=== PATIENT | female | born 1980 | race Caucasian/White ===

== ENCOUNTER 2018-03-26 14:34 | Emergency (ER) | payer OTHER ==
[2018-03-26 15:33] VITALS: BMI 33.8
--- NOTE | 2018-03-26 16:16 | OBHP ---
Datetime: 03/26/2018 15:42 IP Adm Impression: , intrauterine ; No Active Labor; Intact Membranes IP Admit Plan: Observation/Evaluation Admit Comment, IP Provider: 37yo IUP at29w notice spotting on tissue after wiping in bathroo m. F/U/D. No CTX; no SROM. +FM ] PNC: Dr Chamorro - chart rev'd; last visit today POBGYNH: x 2 ; TOP x 2; spont ab x 2 PMH: denies PSH denies NKA PSOH: denies smoking ETOH drugs A: IUP at 29w ?vaginal spotting / UTI / threatened PTL AMA PLAN: check UA CLM Pelvic Type - PN: Adequate Extremities - PN: Normal Abdomen - PN: Normal HEENT - PN: Normal General - PN: Normal FHR - Baseline A Provider: 150 Membranes, Provider: Intact Contraction Comments Provider: 0 Comments, ACOG Physical Exam: SSe no VB; Cx closed; no blood Pool Provider: Negative IP Hx Assessment: The History has been Reviewed and is Current EGA AdmitDate IP: 29.4 Vital Signs Provider: Reviewed; Within Normal Limits IP Chief Complaint: Vaginal bleeding NICHD Variability Prov Fetus A: Moderate 6-25bpm NICHD Accel Fetus A IP Provider: 15X15 FHR Category Provider Fetus A: Category I NICHD Decel Fetus A IP Provider: None Dilatation, Provider: 0 Genitourinary Exam: Normal
--- NOTE | 2018-03-26 16:26 | US ---
Date of service: 03/26/2018 PROCEDURE: Limited pelvic ultrasound HISTORY: , vaginal spotting. COMPARISON: None available. TECHNIQUE: Standard protocol for this study/examination. FINDINGS: Study was performed to assess cervical length. Closed cervix 4.9 cm. IMPRESSION: Closed cervix measuring 4.9 cm in length.
[2018-03-26 17:08] LABS: SQUAMOUS EPITHIAL 3 /hpf (0-5); URINE BACTERIA OCC (<OCC); URINE BILIRUBIN NEGATIVE (NEGATIVE); URINE BLOOD NEGATIVE (NEGATIVE); URINE CLARITY CLOUDY (Clear); URINE COLOR YELLOW (YELLOW); URINE GLUCOSE (UA) NEG (Normal); URINE LEUKOCYTE ESTERASE NEG Leu/uL (Negative); URINE PROTEIN NEGATIVE (NEGATIVE); URINE UROBILINOGEN 0.2-1.0 mg/dL (0.2-1.0)
== END 2018-03-26 17:00 | disposition home or self-care (01) ==
LOC: H.EROB2 14:34 → H.EROB 14:53 → H.EROB2 17:00
DX: O26.853 Spotting complicating pregnancy, third trimester (principal); O23.43 Unspecified infection of urinary tract in pregnancy, third trimester; Z3A.29 29 weeks gestation of pregnancy

== ENCOUNTER 2018-05-24 05:23 | Inpatient (IN) | payer OTHER ==
[2018-05-24 05:45] VITALS: BMI 35.4
[2018-05-24] MEDS ORDERED: Lactated Ringer's 1,000 ML IV ONE (06:03)
[2018-05-24] MEDS ORDERED: Oxytocin 30 UNITS in Sodium Chloride 0.9% 500 ML IV ONE (06:07)
[2018-05-24] MEDS ORDERED: OXYTOCIN/0.9 % NS 20 UNIT/1,000 ML BAG IV SCH (06:15)
[2018-05-24] MEDS ORDERED: Lactated Ringer's 1,000 ML IV SCH ×2 (06:15→16:46)
[2018-05-24 06:26] LABS: BASO % 0.3 % (0.0-2.0); EOS # 0.1 K/uL (0.0-0.7); EOS % 0.7 % (0.0-4.0); HEMOGLOBIN 12.1 g/dL (12.0-16.0); LYMPH # 2.6 K/uL (1.0-4.3); LYMPH % 23.8 % (20.0-40.0); MEAN CELL VOLUME 90.9 fl (81.0-99.0); MEAN CORPUSCULAR HEMOGLOBIN 30.8 pg (27.0-31.0); MEAN CORPUSCULAR HGB CONC 33.9 g/dL (33.0-37.0); MEAN PLATELET VOLUME 9.2 fl (7.2-11.7); MONO # 0.6 K/uL (0.0-0.8); MONO % 5.6 % (0.0-10.0); NEUT # 7.7 K/uL (1.8-7.0); NEUT % 69.6 % (50.0-75.0); NRBC % 0.1 % (0.0-0.0); RBC 3.93 Mil/uL (3.80-5.20)
[2018-05-24] MEDS ORDERED: Phenylephrine 10 mg/ml Inj ONE (07:18)
[2018-05-24] MEDS ORDERED: ePHEDrine 50 mg/ml Inj ONE (07:18)
[2018-05-24] MEDS ORDERED: Fentanyl/Bupivacaine HCl 250 ML EPI ONE (08:30)
--- NOTE | 2018-05-24 10:26 | OBPN ---
Datetime: 05/24/2018 10:19 IP Progress Impression: Normal progression of labor IP Informed Consent Obtain: Vaginal Delivery IP Procedures: Sterile Vag Exam IP Progress Plan: Continue present management Membranes, Provider: Ruptured Contraction Comments Provider: q 2-4 mins FHR - Baseline A Provider: 160 IP Progress Note Comment: Patient evaluated, s/p epidural VE=8/100/-1 FHR = 160 mod jose alejandro, +accels, early decels/late decelerations noted A/P 1. Patient comfortable s/p epidural. Pt almost 8cm, progressing in labor. Late decelerations have been intermittent with moderatve variablity noted. Resuscitation methods have resolved late decelerat ions. Discussed with patient if does not progress well or recurrent, may have to consider 2. CEFM and TOCO 3. Re-evaluate as needed Vital Signs Provider: Reviewed; Within Normal Limits NICHD Variability Prov Fetus A: Moderate 6-25bpm Dilatation, Provider: 7-8 Effacement, Provider: 100 Station, Provider: -1 NICHD Decel Fetus A IP Provider: Early; Late Datetime: 05/24/2018 06:01 Gestation - Est Wks by US: 38.0 NICHD Accel Fetus A IP Provider: 15X15 FHR Category Provider Fetus A: Category I Datetime: 03/26/2018 15:42 Pool Provider: Negative
[2018-05-24] MEDS ORDERED: Oxytocin 30 UNIT 30 UNITS/500 ML BAG IV ONE (10:27)
[2018-05-24] MEDS ORDERED: Oxycodone/Acetaminophen 5/325 mg Tab PO PRN ×2 (14:42→16:46)
[2018-05-24] MEDS ORDERED: Benzocaine/Menthol SPRAY TOP PRN ×2 (14:42→16:46)
--- NOTE | 2018-05-24 14:50 | OBDS ---
DELIVERY PERSONNEL Nurse Manager Income Tax Certified: timur Delivery Doctor: Dr Stephanie Smith Nurse: timur Rn Mobile: JANEE Titus;JANEE Menendez Anesthesiologist: Dr Haskins Global Sales Executive: timur Resident: timur MATERNAL INFORMATION Delivery Anesthesia: Epidural Medications in Delivery: pitocin Estimated Blood Loss (ml): 50cc Placenta Cultured: No Maternal Complications: None RN Comments: to alive baby boy;apgar9/9 ;placenta delivered complete;uneventful delivery Provider Comments: of live male over intact perineum, PAT presentation, followed by claudia torres and rest of infant atraumatically, mouth and nose suctioned, cord clamped and cut, cord blood o btained, placenta delivered spontaneously, fundus firm, EBL = 50mL, first degree laceration repaired with 2-0 Vicryl rapide LABOR SUMMARY EDC: 06/07/2018 00:00 No. Babies in Womb: 1 Attempted: No Labor Anesthesia: Epidural LABOR INFORMATION Reason for Induction: Not Applicable Onset of Labor: 05/24/2018 03:45 Complete Dilatation: 05/24/2018 11:30 Oxytocin: Augmentation Group B Beta Strep: Negative Antibiotics # of Doses: 0 Antibiotics Time of Last Dose: 0 Steroids Given: None Reason Steroids Not Administered: Not Applicable MEMBRANES Membranes Rupture Method: Spontaneous Rupture of Membranes: 05/24/2018 03:15 Length of Rupture (hrs): 10.30 Amniotic Fluid Color: Clear Amniotic Fluid Amount: Large Amniotic Fluid Odor: Normal STAGES OF LABOR Stage 1 hrs: 7 Stage 1 min: 45 Stage 2 hrs: 2 Stage 2 min: 3 Stage 3 hrs: 0 Stage 3 min: 2 Total Time in Labor hrs: 9 Total Time in Labor min: 50 VAGINAL DELIVERY Episiotomy: None Laceration Extension: First Degree Laceration Type: Perineal Other Laceration: na Laceration Repair: Not Applicable Initial Vag Sponge Count: 6 Final Vag Sponge Count: 6 Initial Vag Sharps Count: 2 Final Vag Sharps Count: 2 Sharps Count Correct: Yes Count Comment: correct count BABY A INFORMATION Infant Delivery Date/Time: 05/24/2018 13:33 Method of Delivery: Vaginal Born in Route : No : N/A Forceps: N/A Vacuum Extraction: N/A Shoulder Dystocia : No SHOULDER DYSTOCIA BABY A Delivery Date/Time: 05/24/2018 13:33 PRESENTATION/POSITION BABY A Presentation: Cephalic Cephalic Presentation: Vertex Breech Presentation: N/A PLACENTA INFORMATION BABY A Placenta Delivery Time : 05/24/2018 13:35 Placenta Method of Delivery: Spontaneous Placenta Status: Delivered SCORES BABY A Heart Rate 1 min: >100 bpm Resp Effort 1 min: Good Cry Reflex Irritability 1 min: Cough or Sneeze or Pulls Away Muscle Tone 1 min: Active Motion Color 1 min: Body Braggs, Extremities Blue SCORE 1 MIN: 9 Heart Rate 5 min: >100 bpm Resp Effort 5 min: Good Cry Reflex Irritability 5 min: Cough or Sneeze or Pulls Away Muscle Tone 5 min: Active Motion Color 5 min: Body Braggs, Extremities Blue SCORE 5 MIN: 9 INFORMATION BABY A Gestational Age at Delivery: 38.0 Gestational Status: Term Outcome : Liveborn Infant Condition : Stable Infant Sex: Male IDENTIFICATION/MEDS BABY A ID Band Number: [id number] ID Band Location: Left Leg; Left Arm CORD INFORMATION BABY A No. Cord Vessels: 3 Nuchal Cord : Around Neck x1, Loose Nuchal Cord Other: na True Knot: na Cord pH Baby Arterial: na Infant Cord pH Baby Venous: na Cord Blood Taken: Yes Banking/Donate Info: na Infant Suction: None
[2018-05-25 06:35] LABS: BASO % 0.2 % (0.0-2.0); EOS # 0.1 K/uL (0.0-0.7); EOS % 0.5 % (0.0-4.0); HEMOGLOBIN 10.5 g/dL (12.0-16.0); LYMPH # 2.7 K/uL (1.0-4.3); LYMPH % 17.3 % (20.0-40.0); MEAN CELL VOLUME 90.9 fl (81.0-99.0); MEAN CORPUSCULAR HEMOGLOBIN 30.6 pg (27.0-31.0); MEAN CORPUSCULAR HGB CONC 33.7 g/dL (33.0-37.0); MEAN PLATELET VOLUME 9.1 fl (7.2-11.7); MONO # 0.8 K/uL (0.0-0.8); MONO % 5.1 % (0.0-10.0); NEUT # 12.1 K/uL (1.8-7.0); NEUT % 76.9 % (50.0-75.0); NRBC % 0.1 % (0.0-0.0); RBC 3.44 Mil/uL (3.80-5.20); RED CELL DISTRIBUTION WIDTH 14.3 % (11.5-14.5); WHITE BLOOD COUNT 15.7 K/uL (4.8-10.8)
[2018-05-25] MEDS: Multivitamin With Minerals Tab PO SCH (08:56)
[2018-05-25] MEDS ORDERED: Multivitamin With Minerals Tab PO SCH (09:00)
--- NOTE | 2018-05-25 10:15 | OBPPN ---
Datetime: 05/25/2018 10:13 PP Pain Prov: Within normal limits PP Nausea Prov: Denies PP Flatus Prov: Yes PP BM Prov: Yes PP Breasts Prov: Normal PP Heart Prov: Normal PP Lungs Prov: Normal PP Abdomen/Uterus Prov: Normal PP Lochia Prov: Normal PP Vulva/Perineum Prov: Normal PP CVA Tenderness Prov: Normal PP Extremities Prov: Normal PP Progress Prov: Normal PP Impression Prov: Normal progression PP Plan Prov: Continue present management PP Progress Note Prov: She feels fine H/H 06/23 A: S?P day 1 PLAN anticipate discharge tmrw Vital Signs Provider PP: Reviewed; Within Normal Limits
[2018-05-25] MEDS ORDERED: Lansinoh for Breast Feeding Mothers TP ONE (14:28)
[2018-05-26] MEDS: Multivitamin With Minerals Tab PO SCH (08:50)
--- NOTE | 2018-05-26 11:57 | OBDCSUM ---
Datetime: 05/03/2018 14:35 Follow up at, Provider: [facility] Discharge Instructions, Provider: Routine instructions given Discharge Diagnosis, Provider: Term Delivered Follow up in weeks, Provider: 5 to 6 weeks Contraception discussed, Prov: Yes Disch Activity Restrictions: No sexual activity; Nothing in vagina - [place], tampons, douche Discharge Comment, Provider: Patient cleared for discharge Contraception after Delivery: Undecided
[2018-05-26 23:13] VITALS: BP 114/71; PULSE 74; RESP 20; TEMP 98.7; O2SAT 100
== END 2018-05-26 17:10 | disposition home or self-care (01) | DRG 373 ==
LOC: H.EROB2 05:23 → H.L&D 06:03 → H.OB/GYN 16:00
PROVIDERS: ADMIT Obstetrics & Gynecology Gynecology; ATTEND Obstetrics & Gynecology Gynecology
PROC: 10E0XZZ Delivery of Products of Conception, External Approach (ICD-10-PCS; principal; 2018-05-24)
PROC: 0HQ9XZZ Repair Perineum Skin, External Approach (ICD-10-PCS; 2018-05-24)
PROC: 4A1HXCZ Monitoring of Products of Conception, Cardiac Rate, External Approach (ICD-10-PCS; 2018-05-24)
DX: O76 Abnormality in fetal heart rate and rhythm complicating labor and delivery (principal); O69.81X0 Labor and delivery complicated by cord around neck, without compression, not applicable or unspecified; Z37.0 Single live birth; Z3A.38 38 weeks gestation of pregnancy; O70.0 First degree perineal laceration during delivery